=== PATIENT | female | born 1965 | race Caucasian/White ===

== ENCOUNTER 2020-01-12 19:58 | Emergency (ER) | payer MEDICAID ==
[~2020-01-12] VITALS: Ht 165.1 cm; Wt 62.1 kg
[2020-01-12 20:16] VITALS: BP 100/48
[2020-01-12] MEDS ORDERED: HYDROcodone/APAP 5/325 MG 1 TAB TAB PO STA (20:45)
[2020-01-12] MEDS ORDERED: FAMOTIDINE 20 MG/2 ML VIAL IVP STA (20:55)
[2020-01-12] MEDS ORDERED: NACL 0.9% 1,000 ML IV ONE (20:55)
[2020-01-12 21:19] LABS: BASOPHILS % (AUTO) 0.7 % (0.0-2.0); EOSINOPHILS % (AUTO) 0.4 % (0.0-4.0); HEMATOCRIT 34.6 % (36-48); HEMOGLOBIN 11.4 g/dL (12.0-16.0); LYMPHOCYTES # (AUTO) 1.3 K/uL (2.5-16.5); LYMPHOCYTES % (AUTO) 30.4 % (20.5-51.1); MEAN CORPUSCULAR HEMOGLOBIN 29 pg (27-31); MEAN CORPUSCULAR HGB CONC 33 g/dL (33-37); MEAN CORPUSCULAR VOLUME 88.8 fL (80-94); MONOCYTES # (AUTO) 0.4 K/uL (0.8-1.0); MONOCYTES % (AUTO) 8.6 % (1.7-9.3); NEUTROPHILS # (AUTO) 2.6 K/uL (1.8-7.7); NEUTROPHILS % (AUTO) 59.9 % (42.2-75.2); PLATELET COUNT (AUTO) 190 K/uL (140-450); RED BLOOD CELL COUNT(AUTO) 3.89 MIL/uL (4.20-5.40); RED CELL DISTRIBUTION WIDTH 13.4 % (11.6-13.7); WHITE BLOOD COUNT (AUTO) 4.4 K/uL (4.8-10.8)
[2020-01-12 22:09] LABS: POTASSIUM 3.5 mmol/L (3.5-5.1)
[2020-01-12 22:10] LABS: ANION GAP 15.6 (8-16); CARBON DIOXIDE 24.9 mmol/L (21-32); CREATININE 0.9 mg/dL (0.6-1.3); TOTAL BILIRUBIN 0.2 mg/dL (0.0-1.0)
[2020-01-12 22:11] LABS: ALBUMIN 3.1 g/dL (3.4-5.0)
[2020-01-12 22:36] LABS: APPEARANCE,URINE CLEAR (CLEAR); COLOR,URINE YELLOW (YELLOW)
[2020-01-12 22:37] LABS: BILIRUBIN,URINE NEGATIVE (NEGATIVE); BLOOD, URINE TRACE (NEGATIVE); LEUKOCYTE ESTERASE ,URINE TRACE (NEGATIVE); NITRITE, URINE NEGATIVE (NEGATIVE); UGLUCOSE NEGATIVE (NEGATIVE)
[2020-01-12 22:55] VITALS: BP 105/50
[2020-01-12 23:05] LABS: RBC,URINE 0-5 /HPF (0-5)
== END 2020-01-12 23:04 | disposition home or self-care (01) ==
LOC: MED 19:58
DX: R10.13 Epigastric pain (principal); K21.9 Gastro-esophageal reflux disease without esophagitis
CPT/HCPCS: 36415; 80053; 81001; 82150; 83690; 84484; 85025; 87086; 87186; 93005; 96374; 99284; J3490; J7030; 99283

== ENCOUNTER 2020-01-14 08:56 | Emergency (ER) | payer MEDICAID ==
[~2020-01-14] VITALS: Ht 160 cm; Wt 66.7 kg
[2020-01-14 09:05] VITALS: BP 100/56
--- NOTE | 2020-01-14 09:11 | NUR ---
Patient ambulated to bed 12. RN evaluating patient at bedside.
--- NOTE | 2020-01-14 09:27 | NUR ---
54 y/o female from home c/o epigastric pain that radiates to lower/mid back x 5 days. pt was seen at [facility] 2 days ago for same issue and given pepcix rx with no relief. Denies N/V/D. Abd soft, round, nontender to palp. Bowel sounds present x 4 quad. Awake and alert. Positioned for comfort. VSS medhx: denies
--- NOTE | 2020-01-14 09:32 | NUR ---
Dr Valverde at bedside examining pt
[2020-01-14] MEDS ORDERED: PANTOPRAZOLE 40 MG TABEC PO ONE (09:35)
[2020-01-14] MEDS ORDERED: KETOROLAC 60 MG/2 ML VIAL IM ONE (09:35)
--- NOTE | 2020-01-14 10:41 | NUR ---
Pt resting in bed awake and alert. RR even and unlabored, VSS. Will continue to monitor
[2020-01-14 10:50] VITALS: BP 131/79
--- NOTE | 2020-01-14 10:51 | NUR ---
Patient discharged with v/s stable. Written and verbal after care instructions given and explained. Patient alert, oriented and verbalized understanding of instructions. Ambulatory with steady gait. All questions addressed prior to discharge. ID band removed. Patient advised to follow up with PMD. Rx of tramadol 50mg, ibuprofen 800mg, and protonix 40mg given. Patient educated on indication of medication including possible reaction and side effects. Opportunity to ask questions provided and answered.
== END 2020-01-14 10:51 | disposition home or self-care (01) ==
LOC: MED 08:56
DX: S39.012A Strain of muscle, fascia and tendon of lower back, initial encounter (principal); K21.9 Gastro-esophageal reflux disease without esophagitis; X58.XXXA Exposure to other specified factors, initial encounter; Y93.89 Activity, other specified; Y92.89 Other specified places as the place of occurrence of the external cause; Y99.8 Other external cause status
CPT/HCPCS: 72100; 96372; 99283; J1885